=== PATIENT | male | born 1950 | race American Indian/Alaskan Native ===

== ENCOUNTER 2016-07-24 15:19 | Outpatient (CLI) | payer MEDICARE, OTHER ==
--- NOTE | 2016-07-24 16:20 | XRay Report ---
ROUTINE CHEST, TWO VIEWS: PA and lateral views demonstrate the heart and mediastinal contour to be of normal size and shape. The lungs are clear and fully expanded and the soft tissues and bony structures are normal. IMPRESSION: Normal study.
== END 2016-07-24 15:20 | disposition home or self-care (01) ==
LOC: XRAY 15:19
PROVIDERS: ATTEND Internal Medicine
DX: J20.9 Acute bronchitis, unspecified (principal)
CPT/HCPCS: 71020

== ENCOUNTER 2017-07-23 15:53 | Outpatient (CLI) | payer MEDICARE, OTHER ==
--- NOTE | 2017-07-24 00:38 | XRay Report ---
FINAL REPORT EXAM: XR CHEST ROUTINE 2V HISTORY: COUGH/CHRONIC OBSTRUCTIVE PULMONARY DISEASE WITH ACUTE EXACARBATI COMPARISON: None available. FINDINGS:: Frontal and lateral views of the chest obtained. Cardiac silhouette is within normal limits. Shallow inspiration. Mild linear atelectasis at the lung bases. No large consolidation or effusion otherwise. No pneumothorax. IMPRESSION:: Shallow inspiration with mild linear atelectasis at the lung bases. No large consolidation or effusion otherwise.
== END 2017-07-23 15:54 | disposition home or self-care (01) ==
LOC: XRAY 15:53
PROVIDERS: ATTEND Nurse Practitioner
DX: J44.1 Chronic obstructive pulmonary disease with (acute) exacerbation (principal); J98.11 Atelectasis
CPT/HCPCS: 71046

== ENCOUNTER 2017-09-28 16:32 | Outpatient (CLI) | payer MEDICARE, OTHER ==
--- NOTE | 2017-09-29 00:01 | XRay Report ---
FINAL REPORT PROCEDURE: XR HIP 2-3V LT TECHNIQUE: LEFT hip radiographs, 2 views each, including AP view of the pelvis. HISTORY: PAIN IN LEFT HIP COMPARISON: No prior studies are available for comparison. FINDINGS: Fracture (s) and/or Dislocation(s): None . Joint space(s): There is moderate degree narrowing of the left hip joint space with subarticular sclerosis and geode formation. Soft tissues: Normal. Bone mineralization: Normal. Foreign bodies: None. IMPRESSION: No acute fracture Moderate degree osteoarthritis left hip joint
--- NOTE | 2017-09-29 00:03 | XRay Report ---
FINAL REPORT PROCEDURE: XR SPINE LUMBOSACRAL 2-3V TECHNIQUE: Lumbar spine radiographs, including AP, lateral, and lumbosacral spot views. CPT 62656 HISTORY: LOW BACK PAIN COMPARISON: No prior studies are available for comparison. FINDINGS: Alignment: There is minimal degree spondylolisthesis at L4-5 measuring 4 millimeters. Vertebral body heights/Disk spaces: Normal. Fracture(s): None. Facets: There is evidence of bilateral facet arthropathy at L4-5 and L5-S1. Bone mineralization: Normal. IMPRESSION: No acute fracture Facet arthropathy at L4-5 and L5-S1 with minimal degree spondylolisthesis at L4-5 measuring 4 millimeters .
== END 2017-09-28 16:33 | disposition home or self-care (01) ==
LOC: XRAY 16:32
PROVIDERS: ATTEND Orthopaedic Surgery
DX: M43.16 Spondylolisthesis, lumbar region (principal); M16.12 Unilateral primary osteoarthritis, left hip
CPT/HCPCS: 72100

== ENCOUNTER 2018-10-01 09:09 | Outpatient (CLI) | payer MEDICARE, OTHER ==
[2018-10-01 10:54] LABS: Chol/HDL Ratio 3.21 %
[2018-10-05 12:47] LABS: Vitamin D, 25-OH, D2 <4 ng/mL
== END 2018-10-01 09:10 | disposition home or self-care (01) ==
LOC: LAB 09:09
PROVIDERS: ATTEND Internal Medicine
DX: E11.9 Type 2 diabetes mellitus without complications (principal); E55.9 Vitamin D deficiency, unspecified; E66.9 Obesity, unspecified
CPT/HCPCS: 36415; 80061; 82306; 83036

== ENCOUNTER 2019-01-03 10:02 | Outpatient (CLI) | payer MEDICARE, OTHER ==
[2019-01-03 11:05] LABS: Hematocrit 46.9 % (35.5-45.6); Hemoglobin 15.8 gm/dl (11.8-15.2); Mean Corpuscular HGB Conc 34 % (32-34); Mean Corpuscular Volume 98 fl (84-94); Platelet Count 258 K/mm3 (140-440); Red Blood Count 4.79 M/mm3 (3.65-5.03); Red Cell Distribution Width 14.2 % (13.2-15.2)
[2019-01-03 11:16] LABS: Alanine Aminotransferase 60 units/L (7-56); Albumin 4.5 g/dL (3.9-5); BUN/Creatinine Ratio 13; Blood Urea Nitrogen 10 mg/dL (9-20); Calcium 9.6 mg/dL (8.4-10.2); Chol/HDL Ratio 2.76 %; HDL Cholesterol 46 mg/dL (40-59); Hemolysis Index 4; LDL Cholesterol,Direct 74 mg/dL (50-130)
[2019-01-06 12:36] LABS: Vitamin D, 25-OH, D2 <4 ng/mL
== END 2019-01-03 10:03 | disposition home or self-care (01) ==
LOC: LAB 10:02
PROVIDERS: ATTEND Internal Medicine
DX: E11.9 Type 2 diabetes mellitus without complications (principal); E78.5 Hyperlipidemia, unspecified; E55.9 Vitamin D deficiency, unspecified; N52.9 Male erectile dysfunction, unspecified; N40.0 Benign prostatic hyperplasia without lower urinary tract symptoms
CPT/HCPCS: 36415; 80053; 80061; 82306; 82607; 83036; 84153; 84443; 85027

== ENCOUNTER 2022-01-07 09:18 | Outpatient (CLI) | payer MEDICARE, OTHER ==
[2022-01-07 12:27] LABS: Basophils # (Auto) 0.1 K/mm3 (0.0-0.1); Basophils % (Auto) 1.1 % (0.0-1.8); Eosinophils # (Auto) 0.7 K/mm3 (0.0-0.4); Eosinophils % (Auto) 12.4 % (0.0-4.3); Hematocrit 44.6 % (35.5-45.6); Hemoglobin 14.8 gm/dl (11.8-15.2); Lymphocytes # (Auto) 2.2 K/mm3 (1.2-5.4); Lymphocytes % (Auto) 38.4 % (13.4-35.0); Mean Corpuscular HGB Conc 33 % (32-34); Mean Corpuscular Volume 98 fl (84-94); Monocytes # (Auto) 0.5 K/mm3 (0.0-0.8); Monocytes % (Auto) 9.3 % (0.0-7.3); Platelet Count 290 K/mm3 (140-440); Red Blood Count 4.56 M/mm3 (3.65-5.03); Red Cell Distribution Width 14.6 % (13.2-15.2)
[2022-01-07 12:37] LABS: Alanine Aminotransferase 39 units/L (7-56); Albumin 4.6 g/dL (3.9-5); BUN/Creatinine Ratio 11; Blood Urea Nitrogen 11 mg/dL (9-20); Calcium 9.7 mg/dL (8.4-10.2); HDL Cholesterol 44 mg/dL (40-59); Hemolysis Index 7; LDL Cholesterol,Direct 73 mg/dL (50-130)
[2022-01-07 12:42] LABS: Microalbumin/Creatinine Ratio 9.1 ug/mg
== END 2022-01-07 09:19 | disposition home or self-care (01) ==
LOC: LABHHL 09:18
PROVIDERS: ATTEND Internal Medicine
DX: E78.5 Hyperlipidemia, unspecified (principal); E11.9 Type 2 diabetes mellitus without complications; N40.0 Benign prostatic hyperplasia without lower urinary tract symptoms; E55.9 Vitamin D deficiency, unspecified; Z00.00 Encounter for general adult medical examination without abnormal findings
CPT/HCPCS: 36415; 80053; 80061; 82043; 82306; 83036; 84153; 84443; 85025